=== PATIENT | female | born 2000 | race Two or more races ===

== ENCOUNTER 2018-05-29 08:31 | Emergency (ER) | payer OTHER ==
[2018-05-29 08:38] VITALS: BP 142/76; PULSE 77; TEMP 98.2; BMI 38.0
[2018-05-29] MEDS ORDERED: ACETAMINOPHEN 1000 MG/100 ML VIAL (NON FORMULARY) IVPB ONE (08:55)
--- NOTE | 2018-05-29 09:00 | PDOC ---
History of Present Illness - General Chief Complaint: Vaginal Bleeding Stated Complaint: VAGINAL BLEEDING/ Time Seen by Provider: 05/29/18 08:51 History Source: Patient Exam Limitations: No Limitations - History of Present Illness Travel History: No Initial Comments: 05/29/18 09:00 17-year-old female presents ED with complaints of abdominal cramping and vaginal bleeding. Patient scheduled for D&C tomorrow at 7 AM to be performed by Dr. Geiger secondary to demise noted on ultrasound last week. Patient states has been having vaginal bleeding for the past month without passage of large clots, fever, chills or nausea. Patient does state mild dizziness this morning with increased bleeding. Patient has no urinary complaints, or bowel complaints. Timing/Duration: reports: getting worse Quality: reports: mild, cramping Abdominal Pain Onset Location: reports: suprapubic (mid) Pain Radiation: reports: no radiation Activities at Onset: reports: none Aggravating Factors: improves with: None Alleviating Factors: improves with: None Past History - Travel Traveled outside of the country in the last 30 days: No Close contact w/someone who was outside of country & ill: No - Past Medical History Allergies/Adverse Reactions: Allergies Allergy/AdvReac Type Severity Reaction Status Date / Time Penicillins Allergy Verified 05/29/18 08:37 Home Medications: Ambulatory Orders NK [No Known Home Medication] 05/27/18 COPD: No - Suicide/Smoking/Psychosocial Hx Smoking History: Never smoked Have you smoked in the past 12 months: No Hx Alcohol Use: No Drug/Substance Use Hx: No Substance Use Type: None Hx Substance Use Treatment: No Patient Lives Alone: No Lives with/in: parents Review of Systems - Review of Systems Able to Perform ROS?: No Is the patient limited Czech proficient: No Constitutional: Yes: Weakness (mild) HEENTM: No: Symptoms Reported Respiratory: No: Symptoms reported Cardiac (ROS): Yes: Lightheadedness ABD/GI: Yes: Abdominal cramping. No: Nausea, Vomiting : Yes: Discharge Musculoskeletal: No: Symptoms Reported Integumentary: No: Symptoms Reported Neurological: No: Symptoms reported Endocrine: No: Symptoms Reported Hematologic/Lymphatic: No: Symptoms Reported *Physical Exam - Vital Signs Last Vital Signs Temp Pulse Resp BP Pulse Ox 98.2 F 77 18 142/76 99 05/29/18 08:32 05/29/18 08:32 05/29/18 08:32 05/29/18 08:32 05/29/18 08:32 - Physical Exam General Appearance: Yes: Nourished, Appropriately Dressed. No: Apparent Distress HEENT: negative: Pale Conjunctivae Neck: positive: Normal Thyroid, Supple Respiratory/Chest: positive: Lungs Clear, Normal Breath Sounds. negative: Respiratory Distress, Accessory Muscle Use Cardiovascular: positive: Regular Rhythm, Regular Rate. negative: Murmur Female Pelvic Exam: positive: cervical os closed, vaginal bleeding (bright red no clots) Gastrointestinal/Abdominal: positive: Soft, Tenderness (mild midsuprapubic) Musculoskeletal: negative: CVA Tenderness Extremity: positive: Normal Capillary Refill Integumentary: positive: Normal Color, Warm, Moist Neurologic: positive: Motor Strength 5/5 (ambulatory) ED Treatment Course - LABORATORY CBC & Chemistry Diagram: 05/29/18 08:57 05/29/18 08:57 - RADIOLOGY Radiology Studies Ordered: Category Date Time Status <14WKS US [US] Stat Ultrasound 05/29/18 08:54 Ordered Medical Decision Making - Medical Decision Making 05/29/18 09:23 CC: Vag bleeding and lower abd cramping worsening since yesterday. + demise scheduled for D&C tomorrow at am by Dr. Geiger Exam: noted brb from vag opening. no clots, vss Plan: labs., t&s, urine, and u/s 05/29/18 11:18 Laboratory Tests 05/29/18 05/29/18 05/29/18 08:57 08:57 08:57 WBC 10.3 H Hgb 12.1 Hct 36.0 D Neutrophils % 54.1 D PT with INR 11.40 INR 0.97 Sodium 137 Potassium 3.8 Chloride 108 H Carbon Dioxide 23 Anion Gap 7 L BUN 12 Creatinine 0.6 Random Glucose 116 H Calcium 8.5 Total Bilirubin 0.3 AST 11 L ALT 15 Alkaline Phosphatase 110 Total Protein 6.6 Albumin 3.3 L Beta HCG, Quant 4396.9 Ultrasound shows no viable intrauterine gestation or gestational sac noted. Nonspecific heterogeneous material seen with the lower uterine segment. The endometrium is mildly thickened at 1.1 cm. No free intraperitoneal fluid is seen with the lower pelvis. No gross adnexal pathology seen. Vitals remained stable. Will place called to patient's [employer]PER[employer] doctor Juanjo 05/29/18 12:[address] Carney and aware pt will be dc'd home and to continue w / plan of D&C unless she passes a large blood clot then she understands to call the office in the AM prior to going to the hospital to discuss the plan w/ Juanjo *DC/Admit/Observation/Transfer Diagnosis at time of Disposition: demise - Discharge Dispostion Disposition: HOME - Referrals Referrals: Kaye Geiger DO [Staff Physician] - - Patient Instructions Printed Discharge Instructions: DI for Vaginal Bleeding During Additional Instructions: At this time please remain NPO after midnight for scheduled D& C tomorrow. May take Tylenol for cramping. If you pass a large clot prior to your surgery, please call Dr. Geiger so that she may discuss with you the plan. - Post Discharge Activity
[2018-05-29] MEDS ORDERED: ACETAMINOPHEN INJECTION 100 ML IVPB ONE (09:11)
[2018-05-29 09:29] LABS: BASO % 0.4 % (0-2.0); HEMOGLOBIN 12.1 GM/dL (10.7-15.3); LYMPH % 37.5 % (8-40); MCHC 33.6 g/dl (32.0-36.0); MEAN CELL VOLUME 86.4 fl (80-96); NEUT % 54.1 % (42.8-82.8); PLATELET COUNT 319 K/MM3 (134-434); RBC 4.16 M/mm3 (3.60-5.2); RDW 13.7 % (11.6-15.6); WHITE BLOOD COUNT 10.3 K/mm3 (4.0-10.0)
[2018-05-29 10:17] LABS: INR 0.97 (0.83-1.09); PROTHROMBIN TIME (PATIENT) 11.4 SEC (9.7-13.0)
[2018-05-29 10:23] LABS: ALBUMIN 3.3 g/dl (3.4-5.0); ALK PHOS 110 U/L (45-117); ANION GAP 7 MMOL/L (8-16); BILIRUBIN,TOTAL 0.3 mg/dL (0.2-1); BLOOD UREA NITROGEN 12 mg/dL (7-18); CALCIUM 8.5 mg/dL (8.5-10.1); CHLORIDE 108 mmol/L (98-107); CO2 23 mmol/L (21-32); CREATININE 0.6 mg/dL (0.55-1.3); GLUCOSE,RANDOM 116 mg/dL (74-106); POTASSIUM 3.8 mmol/L (3.5-5.1); SGOT/AST 11 U/L (15-37); SGPT/ALT 15 U/L (13-61); SODIUM 137 mmol/L (136-145); TOT PROT 6.6 g/dl (6.4-8.2)
[2018-05-29 10:46] LABS: EPI CELLS 4.2 /HPF (0-5/HPF); URINE APPEARANCE TURBID; URINE BACTERIA 15.2 /hpf (NEGATIVE); URINE BILIRUBIN NEGATIVE (NEGATIVE); URINE CASTS 5 /hpf (0-8); URINE COLOR RED; URINE GLUCOSE (UA) NEGATIVE (NEGATIVE); URINE KETONE NEGATIVE (NEGATIVE); URINE LEUK ESTERASE 1+ (NEGATIVE); URINE NITRITE NEGATIVE (NEGATIVE); URINE PROTEIN 1+ (NEGATIVE); URINE RBC 5057 /hpf (0-4); URINE WBC 9 /hpf (0-5)
== END 2018-05-29 12:28 | disposition home or self-care (01) ==
LOC: JER 08:31
PROC: 3E033NZ Introduction of Analgesics, Hypnotics, Sedatives into Peripheral Vein, Percutaneous Approach (ICD-10-PCS; principal; 2018-05-29)
DX: O26.891 Other specified pregnancy related conditions, first trimester (principal); O02.1 Missed abortion; Z3A.01 Less than 8 weeks gestation of pregnancy; Z88.0 Allergy status to penicillin
CPT/HCPCS: 36415; 76801-TC; 80053; 81003; 84702; 85025; 85610; 86850; 86900; 86901; 96374; 99282-25; J0131

== ENCOUNTER 2018-05-30 12:36 | Day surgery (SDC) | payer OTHER ==
[2018-05-27 15:26] VITALS: BMI 38.0
--- NOTE | 2018-05-30 13:28 | HP ---
History & Physical Update - History History: No Change - Physical Physical: No Change - Assessment Assessment: No Change - Plan Plan: No Change (Agree with H&P from 05/30/18, for D&C for missed Ab)
[2018-05-30] MEDS ORDERED: IBUPROFEN 800 MG/8 ML IJ IVPB PRN (13:29)
[2018-05-30] MEDS ORDERED: ACETAMINOPHEN 325 MG TABLET (FP) PO PRN (13:29)
[2018-05-30] MEDS ORDERED: LACTATED RINGERS SOLUTION 1,000 ML IV SCH (13:30)
[2018-05-30] MEDS ORDERED: MIDAZOLAM HCL 2 MG/2 ML SINGLE DOSE VIAL ONE (14:08)
[2018-05-30] MEDS ORDERED: fentaNYL CITRATE 250 MCG/5 ML VIAL ONE (14:08)
[2018-05-30] MEDS ORDERED: PROPOFOL 20 ML ONE (14:08)
[2018-05-30] MEDS ORDERED: LIDOCAINE HCL/PF 2% SDV 5ML VIAL ONE (14:08)
[2018-05-30] MEDS ORDERED: oxyCODONE HCL 5 MG TABLET PO PRN (15:13)
[2018-05-30 16:33] VITALS: TEMP 98.3
[2018-05-30 16:49] VITALS: BP 125/63; PULSE 81
--- NOTE | 2018-06-01 09:33 | OP ---
Operative Note - Note: Operative Date: 05/30/18 Pre-Operative Diagnosis: missed Operation: suction D&C Post-Operative Diagnosis: Same as Pre-op Surgeon: Kaye Geiger Anesthesiologist/MORNING SHOW PRODUCER: Merlene Payne Anesthesia: MAC Specimens Removed: products of conception Estimated Blood Loss (mls): 5
--- NOTE | 2018-06-03 17:06 | PATH ---
Surgical Pathology Report Patient Name: ISAAK DICKERSON [facility]. Rec. #: [id number] /Age/Gender: 2000 (Age: 17) / F Account: [id number] Location: [facility] SURGICAL Taken: 05/30/2018 Received: 05/31/2018 Reported: 06/03/2018 Physicians: Kaye Geiger M.D. Specimen(s) Received PRODUCTS OF CONCEPTION Clinical History Missed Final Diagnosis PRODUCTS OF CONCEPTION, SUCTION DILATION AND CURETTAGE: RARE TROPHOBLASTIC TISSUE IN A BACKGROUND OF MARKEDLY INFLAMED DECIDUA, AND GESTATIONAL ENDOMETRIUM. Electronically Signed Catie Nixon M.D. Gross Description Received in formalin labeled "products of conception," is a 3.5 x 3.0 x 0.4 cm aggregate of [place] soft tissue fragments. No definitive villous tissue or somatic tissue is identified. The formalin is filtered and the specimen is entirely submitted in 3 cassettes. /05/31/2018 saudi/05/31/2018
--- NOTE | 2018-06-12 16:45 | OP ---
DATE OF OPERATION: 05/30/2018 PREOPERATIVE DIAGNOSIS: Missed . POSTOPERATIVE DIAGNOSIS: Missed . PROCEDURE: Suction dilatation and curettage. SURGEON: Kaye Geiger DO ANESTHESIA: MAC. COMPLICATIONS: None. ESTIMATED BLOOD LOSS: 5 mL. SPECIMENS REMOVED: Products of conception. COUNTS: Sponge and instrument count correct. DISPOSITION: Stable to PACU. BRIEF HISTORY AND PROCEDURE: The patient is a 17-year-old female who has been seen in the office with complaints of vaginal bleeding during her . Upon ultrasound examination was found to have no heart rate. The patient elected to undergo a suction dilatation and curettage procedure. The patient was seen in the ER the day prior to her scheduled procedure with some heavy vaginal bleeding and had passed the majority of the tissue; however, there were some products of conception remaining, so she was admitted to the surgical floor May 30, 2018, for suction dilatation and curettage to remove the remaining tissue. Consents to the procedure were signed. She was taken back to the operating room, placed in the dorsal lithotomy position, given MAC anesthesia. A hard timeout was performed. The speculum was placed inside the vagina. The cervix was grasped with a tenaculum no acute distress dilated to accommodate a size 7 suction curet which was advanced to the fundus of the uterus. Several passes of the suction curet were completed until adequate uterine cry was appreciated. All instruments were removed from the vagina. Minimal bleeding was noted from the tenaculum sites and no bleeding was noted on the cervical os. All instruments and sponge counts were reported to be correct. The patient was awoken from anesthesia and is recovering in stable condition in the PACU after the procedure. KAYE GEIGER DO /[id number]
== END 2018-05-30 16:55 | disposition home or self-care (01) ==
LOC: JASU-SURG 12:36
PROVIDERS: ATTEND Obstetrics & Gynecology
PROC: 10D17ZZ Extraction of Products of Conception, Retained, Via Natural or Artificial Opening (ICD-10-PCS; principal; 2018-05-30 14:00)
DX: O02.1 Missed abortion (principal)
CPT/HCPCS: 88305-TC; 94760

== ENCOUNTER 2022-03-10 20:58 | Emergency (ER) | payer OTHER ==
[2022-03-10 21:01] VITALS: BMI 42.5
[2022-03-10 23:57] LABS: BASO % 0.4 % (0-2.0); EOS % 1.1 % (0-4.5); HEMATOCRIT 34.7 % (32.4-45.2); HEMOGLOBIN 11.5 GM/dL (10.7-15.3); LYMPH % 25.7 % (8-40); MCH 28.6 pg (25.7-33.7); MCHC 33.1 g/dl (32.0-36.0); MEAN CELL VOLUME 86.5 fl (80-96); MONO % 7.2 % (3.8-10.2); NEUT % 65.6 % (42.8-82.8); PLATELET COUNT 330 10^3/uL (134-434); RBC 4.01 M/mm3 (3.60-5.2); RDW 13.3 % (11.6-15.6); WHITE BLOOD COUNT 15.3 K/mm3 (4.0-10.0)
[2022-03-11 00:18] LABS: ALBUMIN 2.8 g/dl (3.4-5.0); CALCIUM 8.4 mg/dL (8.5-10.1)
[2022-03-11 00:19] LABS: BLOOD UREA NITROGEN 7.8 mg/dL (7-18)
[2022-03-11 00:21] LABS: CREATININE 0.5 mg/dL (0.55-1.3)
[2022-03-11 00:23] LABS: BILIRUBIN,TOTAL 0.3 mg/dL (0.2-1); TOT PROT 6.7 g/dl (6.4-8.2)
[2022-03-11 01:44] LABS: EPI CELLS 5 /uL (0-25.1); HYALINE CASTS 0 /uL (0-3.1); PH,URINE 5.5 (5.0-8.0); URINE APPEARANCE CLEAR; URINE BACTERIA 103 /uL (0-1359); URINE BILIRUBIN NEGATIVE (NEGATIVE); URINE COLOR YELLOW; URINE GLUCOSE (UA) NEGATIVE (NEGATIVE); URINE KETONE 4+ (NEGATIVE); URINE LEUK ESTERASE TRACE (NEGATIVE); URINE NITRITE NEGATIVE (NEGATIVE); URINE PROTEIN TRACE (NEGATIVE); URINE RBC 7 /uL (0-23.9); URINE WBC 18 /uL (0-25.8)
[2022-03-11] MEDS ORDERED: CEPHALEXIN 250 MG/5 ML ORAL SUSPENSION PO ONE (02:28)
[2022-03-11] MEDS ORDERED: CEPHALEXIN MONOHYDRATE 500 MG CAPSULE (UD) ONE (02:43)
[2022-03-11] MEDS ORDERED: CEPHALEXIN MONOHYDRATE 500 MG CAPSULE (UD) PO ONE (02:48)
[2022-03-11 02:51] VITALS: BP 124/76; PULSE 82; RESP 18; TEMP 98.2
[2022-03-11] MEDS ORDERED: CALCIUM CARBONATE 650 MG TABLET PO ONE (23:06)
[2022-04-07] MEDS ORDERED: BUPIVACAINE HCL/PF 0.25% (2.5MG/ML) 10 ML VIAL ONE (10:43)
== END 2022-03-11 02:50 | disposition home or self-care (01) ==
LOC: JER 20:58
DX: O26.612 Liver and biliary tract disorders in pregnancy, second trimester (principal); Z3A.25 25 weeks gestation of pregnancy
CPT/HCPCS: 36415; 76705-TC; 76816-TC; 80053; 81003; 84702; 85025; 87086; 93005; 93010; 99285-25

== ENCOUNTER 2022-05-21 11:15 | Inpatient (IN) | payer OTHER ==
[2022-05-21] MEDS ORDERED: ELECTROLYTE-148 SOLN 1,000 ML IV SCH (12:00)
[2022-05-21] MEDS ORDERED: CITRIC ACID/SODIUM CITRATE 30 ML UNIT-DOSE CUP PO ONE (12:15)
[2022-05-21 12:26] LABS: BASO % 0.8 % (0-2.0); EOS % 0.6 % (0-4.5); HEMATOCRIT 31.7 % (32.4-45.2); HEMOGLOBIN 11.1 GM/dL (10.7-15.3); MCH 29.3 pg (25.7-33.7); MCHC 35.1 g/dl (32.0-36.0); MEAN CELL VOLUME 83.5 fl (80-96); MEAN PLT VOLUME 8.9 fl (7.5-11.1); NEUT % 62.6 % (42.8-82.8); PLATELET COUNT 323 10^3/uL (134-434); RDW 13.3 % (11.6-15.6); WHITE BLOOD COUNT 11.5 K/mm3 (4.0-10.0)
[2022-05-21] MEDS ORDERED: BETAMET ACET/BETAMET NA PH 30 MG/5 ML VIAL IM STA (12:28)
[2022-05-21 12:33] VITALS: BMI 46.6
[2022-05-21 12:33] LABS: INR 0.94 (0.83-1.09); PROTHROMBIN TIME (PATIENT) 10.9 SEC (9.7-13.0)
[2022-05-21 12:36] LABS: ACTIVATED PTT 28.9 SECONDS (25.2-36.5)
[2022-05-21] MEDS ORDERED: BETAMET ACET/BETAMET NA PH 30 MG/5 ML VIAL ONE (12:39)
[2022-05-21 12:49] LABS: CALCIUM 8.7 mg/dL (8.5-10.1)
[2022-05-21 12:50] LABS: BLOOD UREA NITROGEN 9.3 mg/dL (7-18)
[2022-05-21 12:53] LABS: CREATININE 0.5 mg/dL (0.55-1.3)
[2022-05-21 13:45] LABS: HIV INTERPRETATION NEGATIVE (NEGATIVE)
[2022-05-21] MEDS ORDERED: morphine SULFATE (PF) 1 MG/2 ML SYRINGE ONE (18:31)
[2022-05-21] MEDS ORDERED: FENTANYL CITRATE/PF 50 MCG/ML VIAL ONE (18:31)
[2022-05-21] MEDS ORDERED: PHENYLEPHRINE HCL 10 MG/1 ML SINGLE DOSE VIAL ONE (18:32)
[2022-05-21] MEDS ORDERED: DEXAMETHASONE SOD PHOSPHATE 4 MG/1 ML VIAL ONE (19:34)
[2022-05-21] MEDS ORDERED: ceFAZolin SODIUM 1 GM VIAL ONE (19:34)
[2022-05-21] MEDS ORDERED: ONDANSETRON 4 MG/2 ML VIAL ONE (19:34)
[2022-05-21] MEDS ORDERED: KETOROLAC TROMETHAMINE 30 MG/1 ML VIAL ONE (19:34)
[2022-05-21] MEDS ORDERED: OXYTOCIN 10 UNITS/ML VIAL ONE (19:34)
[2022-05-21] MEDS ORDERED: morphine SULFATE/PF 1 MG/2 ML (2cc Syringe - QUVA) SPIN ONE (19:59)
[2022-05-21] MEDS ORDERED: ONDANSETRON 4 MG/2 ML VIAL IVPUSH PRN (19:59)
[2022-05-21] MEDS ORDERED: ACETAMINOPHEN 1000 MG/100 ML BAG IVPB ONE (20:00)
[2022-05-21] MEDS ORDERED: METHYLERGONOVINE MALEATE 0.2 MG/1 ML AMP IM PRN (20:07)
[2022-05-21] MEDS ORDERED: OXYTOCIN 20 UNITS in 0.9% NS 20 UNIT/1,000 ML INFUS.BAG IV SCH (20:15)
[2022-05-21] MEDS ORDERED: ACETAMINOPHEN INJECTION 100 ML IVPB ONE (20:22)
[2022-05-21 21:00] LABS: CORD BASE EXCESS -3.7 mmol/L (0-2); CORD HCO3 22.8 mmHg (20-29); CORD PCO2 46.4 mmHg (30-78); CORD pH 7.31 (7.14-7.44)
[2022-05-21 21:01] LABS: CORD BASE EXCESS -4.4 mmol/L (0-2); CORD HCO3 22.1 mmHg (20-29); CORD PCO2 45.3 mmHg (30-78); CORD pH 7.306 (7.14-7.44)
[2022-05-22] MEDS: IBUPROFEN 800 MG/8 ML IJ IVPB PRN ×2 (00:26→11:09)
[2022-05-22] MEDS: FERROUS SO4 325 MG TABLET (FP) PO SCH ×3 (00:26→22:12)
[2022-05-22] MEDS: ACETAMINOPHEN 325 MG TABLET (FP) PO PRN ×2 (05:28→22:13)
[2022-05-22] MEDS ORDERED: oxyCODONE HCL 5 MG TABLET PO PRN ×2 (08:11)
[2022-05-22 08:25] LABS: BASO % 0.3 % (0-2.0); HEMATOCRIT 31.1 % (32.4-45.2); HEMOGLOBIN 10.7 GM/dL (10.7-15.3); LYMPH % 12.9 % (8-40); MCH 28.5 pg (25.7-33.7); MCHC 34.4 g/dl (32.0-36.0); MEAN CELL VOLUME 82.9 fl (80-96); MEAN PLT VOLUME 9.7 fl (7.5-11.1); MONO % 3.9 % (3.8-10.2); NEUT % 82.9 % (42.8-82.8); PLATELET COUNT 321 10^3/uL (134-434); RBC 3.75 M/mm3 (3.60-5.2); RDW 13.3 % (11.6-15.6); WHITE BLOOD COUNT 17.7 K/mm3 (4.0-10.0)
[2022-05-22] MEDS: PRENATAL VITAMINS W/ FOLIC ACID TABLET (FP) PO SCH (10:19)
[2022-05-22] MEDS ORDERED: BISACODYL 10 MG SUPP.RECT RC PRN (20:11)
[2022-05-22] MEDS: SENNOSIDES/DOCUSATE COMBO (SENNA PLUS) TABLET (UD) PO PRN (22:12)
[2022-05-22] MEDS: SIMETHICONE 80 MG TAB.CHEW (FP) PO PRN (22:12)
[2022-05-23] MEDS: ACETAMINOPHEN 325 MG TABLET (FP) PO PRN (06:34)
[2022-05-23] MEDS: FERROUS SO4 325 MG TABLET (FP) PO SCH ×2 (09:28→21:25)
[2022-05-23] MEDS: PRENATAL VITAMINS W/ FOLIC ACID TABLET (FP) PO SCH (09:28)
[2022-05-23] MEDS: IBUPROFEN 600 MG TABLET (FP) PO PRN (19:44)
[2022-05-23] MEDS: SIMETHICONE 80 MG TAB.CHEW (FP) PO PRN (19:44)
[2022-05-23] MEDS: SENNOSIDES/DOCUSATE COMBO (SENNA PLUS) TABLET (UD) PO PRN (21:25)
[2022-05-24] MEDS: IBUPROFEN 600 MG TABLET (FP) PO PRN ×3 (05:54→20:31)
[2022-05-24] MEDS: SIMETHICONE 80 MG TAB.CHEW (FP) PO PRN ×2 (05:54→20:30)
[2022-05-24 08:16] LABS: BASO % 0.6 % (0-2.0); EOS % 0.6 % (0-4.5); HEMATOCRIT 31.4 % (32.4-45.2); HEMOGLOBIN 10.8 GM/dL (10.7-15.3); LYMPH % 28.1 % (8-40); MCH 29.1 pg (25.7-33.7); MCHC 34.4 g/dl (32.0-36.0); MEAN CELL VOLUME 84.5 fl (80-96); MEAN PLT VOLUME 8.9 fl (7.5-11.1); MONO % 6.4 % (3.8-10.2); NEUT % 64.3 % (42.8-82.8); PLATELET COUNT 332 10^3/uL (134-434); RBC 3.71 M/mm3 (3.60-5.2); RDW 13.7 % (11.6-15.6); WHITE BLOOD COUNT 16.7 K/mm3 (4.0-10.0)
[2022-05-24] MEDS: PRENATAL VITAMINS W/ FOLIC ACID TABLET (FP) PO SCH (09:41)
[2022-05-24] MEDS: FERROUS SO4 325 MG TABLET (FP) PO SCH ×2 (09:41→23:01)
[2022-05-24] MEDS: SENNOSIDES/DOCUSATE COMBO (SENNA PLUS) TABLET (UD) PO PRN (20:31)
[2022-05-25] MEDS: PRENATAL VITAMINS W/ FOLIC ACID TABLET (FP) PO SCH (09:37)
[2022-05-25] MEDS: FERROUS SO4 325 MG TABLET (FP) PO SCH (09:38)
[2022-05-25] MEDS: IBUPROFEN 600 MG TABLET (FP) PO PRN (10:10)
[2022-05-25 13:20] VITALS: BP 111/72; PULSE 79; RESP 17; TEMP 99
== END 2022-05-25 16:30 | disposition home or self-care (01) | DRG 540 ==
LOC: JLDR 11:15 → J3W 21:22
PROVIDERS: ADMIT Obstetrics & Gynecology; ATTEND Obstetrics & Gynecology
PROC: 10D00Z1 Extraction of Products of Conception, Low, Open Approach (ICD-10-PCS; principal; 2022-05-21)
DX: O34.211 Maternal care for low transverse scar from previous cesarean delivery (principal); N85.8 Other specified noninflammatory disorders of uterus; O36.5930 Maternal care for other known or suspected poor fetal growth, third trimester, not applicable or unspecified; O99.214 Obesity complicating childbirth; Z3A.35 35 weeks gestation of pregnancy; O60.14X0 Preterm labor third trimester with preterm delivery third trimester, not applicable or unspecified; Z37.0 Single live birth
CPT/HCPCS: 36415; 36600; 59025; 80048; 82803; 85025; 85610; 85730; 86780; 86850; 86900; 86901; 87389; 88307-TC; 96372; C9803-CS; G0463-25; U0003; U0005